=== PATIENT | female | born 1975 | race Caucasian/White ===

== ENCOUNTER → 2018-03-31 11:12 | Outpatient (CLI) | payer BC, SELFPAY ==
[2018-04-05 13:25] LABS: HPV Reflexed? NOT INDICATED
== END ==
PROVIDERS: Visit Provider Obstetrics & Gynecology
DX: Z12.4 Encounter for screening for malignant neoplasm of cervix (principal); Z01.419 Encounter for gynecological examination (general) (routine) without abnormal findings
CPT/HCPCS: 88175; G0145